=== PATIENT | male | born 1975 | race African-American/Black ===

== ENCOUNTER 2019-02-27 01:55 | Emergency (ER) | payer BC ==
[2019-02-27] MEDS ORDERED: Alum Hydrox/Mag Hydrox/Simeth 30 ML, Lidocaine 2% 15 ML PO STA ×2 (02:17)
[2019-02-27] MEDS ORDERED: Famotidine 20 MG Tab PO ONE (02:17)
--- NOTE | 2019-02-27 02:23 | EDM.PDOC ---
ED HPI GENERAL MEDICAL PROBLEM - General Chief Complaint: ENT Problem Stated Complaint: THROAT PROBLEM Time Seen by Provider: 02/27/19 02:04 Source of Information: Reports: Patient History Limitations: Reports: No Limitations - History of Present Illness INITIAL COMMENTS - FREE TEXT/NARRATIVE: Mr. Stein is a very pleasant 43-year-old man with a past medical history significant for panic attacks that he states he gets about once every 6 months, but for which she takes no medication, who states that he woke about 01:45 ( about 20 minutes ago) with shortness of breath and an acid taste in his mouth. He states that he was lying in a prone position when the event occurred. He states that he felt like he was choking and that he could not breathe for about 20 seconds, and that caused him to panic. When he was able to breathe, he drank some water, but he continues to have a burning sensation in the back of his throat and down his esophagus. No prior similar symptoms. Here in the ED, he states that he still feels anxious, and it is noted that his oxygen saturation is 100% on room air. The patient does not have a PCP. He has not received an influenza vaccine this season, but declined an offer for one here. - Related Data Allergies Allergy/AdvReac Type Severity Reaction Status Date / Time No Known Allergies Allergy Verified 02/27/19 02:02 Home Meds: Home Meds . 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 ED EXAM, GENERAL - Physical Exam Exam: See Below Exam Limited By: No Limitations General Appearance: Alert, WD/WN, No Apparent Distress Eye Exam: Bilateral Eye: EOMI, Normal Inspection Ears: Normal External Exam, Hearing Grossly Normal, Normal TMs, Other (small piece of cotton or popcorn in right ear) Nose: Normal Inspection, Normal Mucosa, No Blood Throat/Mouth: Normal Inspection, Normal Lips, Normal Teeth, Normal Gums, Normal Oropharynx, Normal Voice, No Airway Compromise Head: Atraumatic, Normocephalic Neck: Normal Inspection, Supple, Non-Tender, Full Range of Motion. No: Lymphadenopathy (L), Lymphadenopathy (R) Respiratory/Chest: No Respiratory Distress, Lungs Clear, Normal Breath Sounds, No Accessory Muscle Use. No: Decreased Breath Sounds, Crackles, Rhonchi, Wheezing, Stridor, Prolonged Expiration Cardiovascular: Normal Peripheral Pulses, Regular Rate, Rhythm, No Edema, No Gallop, No JVD, No Murmur, No Rub Peripheral Pulses: 4+: Radial (L), Radial (R) GI/Abdominal: Normal Bowel Sounds, Soft, Non-Tender, No Organomegaly, No Distention, No Abnormal Bruit, No Mass (Male) Exam: Deferred Rectal (Males) Exam: Deferred Back Exam: Normal Inspection, Full Range of Motion, NT Extremities: Normal Inspection, Normal Range of Motion, No Pedal Edema, Normal Capillary Refill Neurological: Alert, Oriented, Normal Cognition, No Motor/Sensory Deficits Psychiatric: Normal Affect Skin Exam: Warm, Dry, Intact, Normal Color, No Rash Course - Vital Signs Last Recorded V/S: Last Vital Signs Temp 35.8 C 02/27/19 02:03 Pulse 93 02/27/19 02:03 Resp 18 02/27/19 02:03 BP 138/102 H 02/27/19 02:03 Pulse Ox 100 02/27/19 02:03 - Orders/Labs/Meds Meds: Medications Discontinued Medications Generic Name Dose Route Start Last Admin Trade Name Alba PRN Reason Stop Dose Admin Al Hydroxide/Mg Hydroxide 30 0 ml 02/27/19 02:17 02/27/19 02:23 ml/ Lidocaine HCl 15 ml PO 02/27/19 02:18 45 ml ONETIME STA Administration Famotidine 20 mg 02/27/19 02:17 02/27/19 02:22 Pepcid PO 02/27/19 02:18 20 mg ONETIME ONE Administration - Re-Assessments/Exams Free Text/Narrative Re-Assessment/Exam: 02/27/19 02:18 The patient's symptoms are wholly consistent with GERD, especially since he was in a prone position when it occurred. His symptoms were made worse by anxiety, which persists here in the ED. For today's purposes, since the patient is complaining of some continued acid taste in the back of his throat, he will be treated with a GI cocktail, and I will start him on famotidine, which I will recommend that he continue to take once a day. If his symptoms persist, he can increase the dosage to one tablet twice a day, but if his symptoms persist beyond that, he should probably have an EGD. I will refer him to the clinic so that he can establish a PCP, and I suggested to him that he discuss his panic attacks, when seen. The patient agreed. In addition, I have asked Nancy REYES to irrigate the patient's right ear canal. 02/27/19 02:36 Notified by Nancy REYES that she successfully irrigated the foreign body out of the patient's right ear canal. Additionally, the patient is feeling much better after the GI cocktail. Departure - Departure Time of Disposition: 02:20 Disposition: Home, Self-Care 01 Condition: Good Clinical Impression: GERD (gastroesophageal reflux disease), Anxiety, Foreign body in right ear - Discharge Information *PRESCRIPTION DRUG MONITORING PROGRAM REVIEWED*: Not Applicable *COPY OF PRESCRIPTION DRUG MONITORING REPORT IN PATIENT LETTY: Not Applicable Instructions: Gastroesophageal Reflux Disease, Adult, [id number] Referrals: Christopher Contreras MD [Physician] - Forms: ED Department Discharge Additional Instructions: You were seen in the emergency room after being woken with shortness of breath and a burning acid taste in your mouth. Based on your history and physical examination, your symptoms were most likely caused by GERD. You have been started on the antacid medicine famotidine (Pepcid). Famotidine is available [id number], and generic is just as good as the brand name. We recommend that you start taking one tablet of famotidine every day. If your GERD symptoms continue, you may increase famotidine to one tablet twice a day. If your GERD symptoms continue despite taking famotidine twice a day, we recommend that you undergo an EGD = scope of your esophagus and stomach. We recommend that you follow-up with Dr. Christopher French, or one of the other providers in the clinic, to establish a PCP. When there, we recommend that you discuss treatment options for anxiety. If any other problems, please do not hesitate to return to the ER.
== END 2019-02-27 02:46 | disposition home or self-care (01) ==
LOC: JD.ED 01:55
DX: K21.9 Gastro-esophageal reflux disease without esophagitis (principal); F41.9 Anxiety disorder, unspecified; T16.1XXA Foreign body in right ear, initial encounter
CPT/HCPCS: 99284; A9270; 99283

== ENCOUNTER 2019-04-24 16:18 | Emergency (ER) | payer BC ==
--- NOTE | 2019-04-24 19:10 | EDM.PDOC ---
ED HPI GENERAL MEDICAL PROBLEM - General Chief Complaint: Gastrointestinal Problem Stated Complaint: BACK PAIN/ABDOMINAL PAIN/BLACK STOOL Time Seen by Provider: 04/24/19 18:31 - History of Present Illness INITIAL COMMENTS - FREE TEXT/NARRATIVE: 43-year-old male presents to the emergency room with nausea vomiting and diarrhea This started 24 hours ago. Started out with diarrhea he has had a loose stool about every hour since then. Then he develops nausea vomiting and has been a hard time keeping anything down. He has not had any fevers or chills with this. He really does not have any significant pain with this. Patient has not had episodes like this in the past the stools have been fairly dark in color and he thought at times they were black so the walk-in clinic sent him here. Patient has not had any urinary symptoms no burning or frequency or pain with urination. Patient denies any past medical problems and enjoys pretty good health. Abdominal Pain Score (Numeric/FACES): 8 - Related Data Allergies Allergy/AdvReac Type Severity Reaction Status Date / Time No Known Allergies Allergy Verified 04/24/19 16:53 Home Meds: Home Meds Ondansetron [Zofran ODT] 4 mg PO Q6H PRN #10 tab.dis 04/24/19 [Rx] Past Medical History - Past Health History Medical/Surgical History: Denies Medical/Surgical History Psychiatric History: Reports: Anxiety, Panic Attack - Past Surgical History Musculoskeletal Surgical History: Reports: Other (See Below) Other Musculoskeletal Surgeries/Procedures:: toe surgery Social & Family History - Family History Family Medical History: Noncontributory - Tobacco Use Smoking Status *Q: Never Smoker Second Hand Smoke Exposure: No - Caffeine Use Caffeine Use: Reports: Coffee, Soda - Recreational Drug Use Recreational Drug Use: No - Living Situation & Occupation Living situation: Reports: Single, Alone 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 Denies: Abdominal Pain, Constipation : Reports: No Symptoms Musculoskeletal: Reports: No Symptoms Skin: Reports: No Symptoms Neurological: Reports: No Symptoms ED EXAM, GI/ABD - Physical Exam Exam: See Below Exam Limited By: No Limitations General Appearance: Alert, No Apparent Distress Head: Atraumatic, Normocephalic Neck: Normal Inspection, Supple, Non-Tender, Full Range of Motion. No: Lymphadenopathy (L), Lymphadenopathy (R) Respiratory/Chest: No Respiratory Distress, Lungs Clear, Normal Breath Sounds Cardiovascular: Regular Rate, Rhythm, No Edema, No Murmur Rectal (Males) Exam: Normal Exam, Heme - Stool, Other ( Hemoccult negative patient did not tolerate exam real well prostate not examined). No: Black Stool , Bloody Stool Course - Vital Signs Last Recorded V/S: Last Vital Signs Temp 36.7 C 04/24/19 16:50 Pulse 94 04/24/19 16:50 Resp 18 04/24/19 16:50 BP 117/77 04/24/19 16:50 Pulse Ox 98 04/24/19 16:50 - Orders/Labs/Meds Labs: Laboratory Tests 04/24/19 04/24/19 Range/Units 17:49 17:49 WBC 6.55 (4.23-9.07) K/mm3 RBC 5.40 (4.63-6.08) M/mm3 Hgb 16.0 (13.7-17.5) gm/dl Hct 47.9 (40.1-51.0) % MCV 88.7 (79.0-92.2) fl MCH 29.6 (25.7-32.2) pg MCHC 33.4 (32.2-35.5) g/dl RDW Std Deviation 46.4 H (35.1-43.9) fL Plt Count 355 H (163-337) K/mm3 MPV 9.3 L (9.4-12.3) fl Neutrophils % (Manual) 88 H (40-60) % Band Neutrophils % 0 (0-10) % Lymphocytes % (Manual) 12 L (20-40) % Atypical Lymphs % 0 % Monocytes % (Manual) 0 L (2-10) % Eosinophils % (Manual) 0 L (0.8-7.0) % Basophils % (Manual) 0 L (0.2-1.2) Platelet Estimate Adequate RBC Morph Comment Normal Sodium 137 (136-145) mEq/L Potassium 3.8 (3.5-5.1) mEq/L Chloride 102 (98-107) mEq/L Carbon Dioxide 25 (21-32) mEq/L Anion Gap 13.8 (5-15) BUN 14 (7-18) mg/dL Creatinine 1.2 (0.7-1.3) mg/dL Est Cr Clr Drug Dosing 75.74 mL/min Estimated GFR (MDRD) > 60 (>60) mL/min BUN/Creatinine Ratio 11.7 L (14-18) Glucose 95 (74-106) mg/dL Calcium 8.7 (8.5-10.1) mg/dL Total Bilirubin 0.8 (0.2-1.0) mg/dL AST 22 (15-37) U/L ALT 37 (16-63) U/L Alkaline Phosphatase 88 (46-116) U/L Total Protein 7.9 (6.4-8.2) g/dl Albumin 3.7 (3.4-5.0) g/dl Globulin 4.2 gm/dL Albumin/Globulin Ratio 0.9 L (1-2) - Re-Assessments/Exams Free Text/Narrative Re-Assessment/Exam: 04/24/19 19:44 Labs look assuring he is not dehydrated white count not elevated. Discussed this with the patient he would like to go home we will give him a prescription for Zofran and have him start probiotics. He is to push oral fluids. Departure - Departure Time of Disposition: 19:45 Disposition: Home, Self-Care 01 Clinical Impression: Gastroenteritis - Discharge Information Prescriptions: Ondansetron [Zofran ODT] 4 mg PO Q6H PRN #10 tab.dis PRN Reason: Nausea/Vomiting Referrals: PCP,None [Primary Care Provider] - Forms: ED Department Discharge Additional Instructions: Return to the emergency room with any questions problems or worsening symptoms. Use the Zofran as needed to help control the nausea. While at the pharmacy draft roller picker some probiotics this may help with the diarrhea. Clear liquid diet for the next 24 hours then slowly advance as tolerated. Sepsis Event Note - Evaluation Sepsis Screening Result: No Definite Risk - Focused Exam Vital Signs: Vital Signs Temp Pulse Resp BP Pulse Ox 04/24/19 16:50 36.7 C 94 18 117/77 98 Date Exam was Performed: 04/24/19 Time Exam was Performed: 19:12
[2019-04-24] MEDS ORDERED: Ondansetron 4 MG Tab.DIS PO ONE (19:32)
== END 2019-04-24 19:53 | disposition home or self-care (01) ==
LOC: JD.ED 16:18
DX: K21.9 Gastro-esophageal reflux disease without esophagitis (principal)
CPT/HCPCS: 36415; 80053; 85007; 85027; 99284; A9270; 99283

== ENCOUNTER 2019-07-13 12:51 | Emergency (ER) | payer BC, OTHER ==
--- NOTE | 2019-07-13 14:29 | CR ---
Chest: Portable view of the chest was obtained. Comparison: No prior chest imaging. Heart size and mediastinum are normal. Lungs are clear with no acute parenchymal change. Bony structures are grossly intact. Impression: 1. Nothing acute is seen on portable chest x-ray. Diagnostic code #1 Study was dictated in MDT
--- NOTE | 2019-07-13 14:52 | EDM.PDOC ---
ED HPI GENERAL MEDICAL PROBLEM - General Chief Complaint: Chest Pain Stated Complaint: CHEST PAIN, CONGESTION Time Seen by Provider: 07/13/19 13:27 Source of Information: Reports: Patient, RN Notes Reviewed - History of Present Illness INITIAL COMMENTS - FREE TEXT/NARRATIVE: 43 year male with onset of nasal congestion 2 days ago. He has also had dyspnea , Baird, low energy. No cough, sore throat, fever, chills. No hx of heart or lung problems. 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 Chest Pain Score (Numeric/FACES): 6 - Related Data Allergies Allergy/AdvReac Type Severity Reaction Status Date / Time No Known Allergies Allergy Verified 07/13/19 13:08 Home Meds: Home Meds . [No Known Home Meds] 07/13/19 [History] Past Medical History - Past Health History Medical/Surgical History: Denies Medical/Surgical History Psychiatric History: Reports: Anxiety, Panic Attack - Past Surgical History Musculoskeletal Surgical History: Reports: Other (See Below) Other Musculoskeletal Surgeries/Procedures:: toe surgery Social & Family History - Family History Family Medical History: Noncontributory - Tobacco Use Smoking Status *Q: Never Smoker - Caffeine Use Caffeine Use: Reports: Coffee - Recreational Drug Use Recreational Drug Use: No - Living Situation & Occupation Living situation: Reports: Single, Alone 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 Denies: Throat Pain Respiratory: Reports: Shortness of Breath. Denies: Cough Cardiovascular: Denies: Chest Pain GI/Abdominal: Denies: Abdominal Pain, Nausea, Vomiting Musculoskeletal: Reports: No Symptoms Skin: Reports: No Symptoms Neurological: Reports: Headache ED EXAM, GENERAL - Physical Exam Exam: See Below General Appearance: Alert, No Apparent Distress Head: Atraumatic Neck: Supple Respiratory/Chest: No Respiratory Distress, Lungs Clear, Normal Breath Sounds. No: Rhonchi, Wheezing Cardiovascular: Regular Rate, Rhythm Extremities: Normal Inspection, Normal Range of Motion Neurological: Alert, Oriented, No Motor/Sensory Deficits Skin Exam: Warm, Dry Course - Vital Signs Last Recorded V/S: Last Vital Signs Temp 97.6 F 04/17/20 13:05 Pulse 62 07/13/19 13:05 Resp 20 07/13/19 13:05 BP 123/84 07/13/19 13:05 Pulse Ox 100 07/13/19 13:05 - Orders/Labs/Meds Orders: Active Orders 24 hr Category Date Time Status CORONAVIRUS COVID-19 PCR [facility] Stat Lab 07/13/19 14:34 Ordered - Re-Assessments/Exams Free Text/Narrative Re-Assessment/Exam: 07/13/19 15:02 CXR nl. Covid screen done Departure - Departure Time of Disposition: 14:48 Disposition: Home, Self-Care 01 Condition: Fair Clinical Impression: URI (upper respiratory infection) - Discharge Information Instructions: Upper Respiratory Infection, Adult, [id number] Referrals: Alvin Umana Jr, MD [Primary Care Provider] - Forms: ED Department Discharge Additional Instructions: Rest, isolation precautions as discussed until you hear results of your covid screen. You will get called from the ED as soon as your screening results become available to us most likely in 2 to 3 days. Drink plenty of water to maintain hydration. Vaporizer or steam as needed. Tylenol q 6 to 8 hr as needed. Return to ED if needed, especially for severe difficulty breathing. Sepsis Event Note - Evaluation Sepsis Screening Result: No Definite Risk - Focused Exam Vital Signs: Vital Signs Temp Pulse Resp BP Pulse Ox 07/13/19 13:05 97.6 F 62 20 123/84 100 Date Exam was Performed: 07/13/19 Time Exam was Performed: 14:59 - My Orders Last 24 Hours: My Active Orders 07/13/19 14:34 CORONAVIRUS COVID-19 PCR [facility] Stat - Assessment/Plan Last 24 Hours: My Active Orders 07/13/19 14:34 CORONAVIRUS COVID-19 PCR [facility] Stat
== END 2019-07-13 15:45 | disposition home or self-care (01) ==
LOC: JD.ED 12:51
DX: J06.9 Acute upper respiratory infection, unspecified (principal)
CPT/HCPCS: 71045; 71045-26; 99282; 99285-25; U0002